=== PATIENT | female | born 1965 | race African-American/Black ===

== ENCOUNTER 2021-01-05 06:48 | Day surgery (SDC) | payer OTHER ==
[2021-01-05] MEDS ORDERED: MIDAZOLAM HCL 2 MG/2 ML SINGLE DOSE VIAL ONE (09:22)
[2021-01-05] MEDS ORDERED: BUPIVACAINE HCL/PF 0.5% (5 MG/ML) 30 ML VIAL IJ ONE (09:22)
[2021-01-05] MEDS ORDERED: PROPOFOL 20 ML ONE (10:08)
[2021-01-05] MEDS ORDERED: BENZOIN/ALOE VERA/STORAX/TOLU 58 ML BOTTLE ONE (10:57)
[2021-01-05] MEDS ORDERED: ATORVASTATIN CA 40 MG TABLET (FP) PO SCH (22:00)
[2021-01-05] MEDS ORDERED: LISINOPRIL 5 MG TABLET PO SCH (22:00)
[2021-01-06] MEDS ORDERED: HYDROCHLOROTHIAZIDE 25 MG TABLET (FP) PO SCH (10:00)
[2021-01-06] MEDS ORDERED: amLODIPine BESYLATE 10 MG TABLET (FP) PO SCH (10:00)
== END 2021-01-05 16:30 | disposition home or self-care (01) ==
LOC: FASU 06:48
PROVIDERS: ATTEND Orthopaedic Surgery Orthopaedic Surgery of the Spine
PROC: 0KBS0ZZ Excision of Right Lower Leg Muscle, Open Approach (ICD-10-PCS; principal; 2021-01-05 10:21)
DX: M67.461 Ganglion, right knee (principal)
CPT/HCPCS: 82962; 88307-TC; 94760